=== PATIENT | male | born 1980 | race Hispanic/Latino ===

== ENCOUNTER 2017-10-03 00:02 | Emergency (ER) | payer SELFPAY ==
[2017-10-03 01:19] VITALS: BP 137/81
[2017-10-03] MEDS ORDERED: DUONEB *Not for PRN Use IH ONE ×2 (01:22→01:23)
== END 2017-10-03 03:45 | disposition left against medical advice (07) ==
LOC: ED 00:02
DX: R07.9 Chest pain, unspecified (principal); Z53.21 Procedure and treatment not carried out due to patient leaving prior to being seen by health care provider
CPT/HCPCS: 93005; 93010